=== PATIENT | female | born 1990 | race Caucasian/White ===

== ENCOUNTER 2018-04-20 14:39 | Emergency (ER) | payer MEDICAID ==
[~2018-04-20] VITALS: Ht 154.9 cm; Wt 69.8 kg
[2018-04-20 14:42] VITALS: BP 137/81
[2018-04-20] MEDS ORDERED: LIDOCAINE 2%, 20ML SQ ONE (16:00)
[2018-04-20] MEDS ORDERED: SULFAMETH./TRIMETHOPRIM DS 800MG/160MG TABLET ONE (16:02)
[2018-04-20] MEDS ORDERED: OXYcodone/APAP 5/325MG TABLET ONE (16:02)
[2018-04-20] MEDS ORDERED: CEPHALEXIN 500 MG CAPSULE ONE (16:03)
[2018-04-20] MEDS ORDERED: SULFAMETH./TRIMETHOPRIM DS 800MG/160MG TABLET PO ONE (16:30)
[2018-04-20] MEDS ORDERED: CEPHALEXIN 500 MG CAPSULE PO ONE (16:30)
[2018-04-20] MEDS ORDERED: OXYcodone/APAP 5/325MG TABLET PO ONE (16:30)
== END 2018-04-20 16:51 | disposition home or self-care (01) ==
LOC: ED 16:25
DX: L02.412 Cutaneous abscess of left axilla (principal); L03.112 Cellulitis of left axilla; H01.009 Unspecified blepharitis unspecified eye, unspecified eyelid
CPT/HCPCS: 10060; 99284

== ENCOUNTER 2018-04-23 09:39 | Emergency (ER) | payer MEDICAID ==
[~2018-04-23] VITALS: Ht 154.9 cm; Wt 69.1 kg
[2018-04-23 09:49] VITALS: BP 118/83
== END 2018-04-23 10:21 | disposition home or self-care (01) ==
LOC: ED 10:00
DX: Z48.01 Encounter for change or removal of surgical wound dressing (principal)
CPT/HCPCS: 99283

== ENCOUNTER 2020-02-16 08:13 | Inpatient (IN) | payer MEDICAID, OTHER ==
[~2020-02-16] VITALS: Ht 154.9 cm; Wt 66.6 kg
--- NOTE | 2020-02-16 08:38 | NUR ---
FIRST CONTACT WITH PT. PT C/O ALL QUADRANTS ABD PAIN SINCE YESTERDAY, CRAMPING AND STABBING PAIN. PT REPORTS INTERMITTENT N/V. DENIES CP, SOB, FEVER, RECENT TRAUMA. HX- ONE YEAR AGO HAD COLON RESECTION. PT'S AOX4. RESPS EVEN AND UNLABORED. DENIES URINARY SX. BP/SPO2 MONITORS IN PLACE. CALL LIGHT WITHIN REACH. RAILS UP X 2.
--- NOTE | 2020-02-16 08:41 | NUR ---
URINE CUP GIVEN.
[2020-02-16] MEDS ORDERED: MAALOX/HYOSCYAMINE/LIDOCAINE 45 ML BTL ONE (08:43)
[2020-02-16] MEDS ORDERED: MORPHINE SULFATE 4 MG/ML, 1ML ONE ×2 (08:43→10:16)
--- NOTE | 2020-02-16 08:55 | NUR ---
PT WHEELED TO BR AND BACK TO ROOM. URINE SAMPLE COLLECTED AND SENT.
[2020-02-16] MEDS ORDERED: MAALOX/HYOSCYAMINE/LIDOCAINE 45 ML BTL PO ONE (09:00)
[2020-02-16] MEDS ORDERED: MORPHINE SULFATE 4 MG/ML, 1ML IVPush PRN ×2 (09:00→10:00)
--- NOTE | 2020-02-16 09:03 | NUR ---
PT MEDICATED PER EMAR. PT TOLERATED WELL.
[2020-02-16 09:32] LABS: CULTURE INDICATED? YES; MICROSCOPIC INDICATED
[2020-02-16 09:42] LABS: MEAN CORPUSCULAR HEMOGLOBIN 29.2 pg (27.0-34.8); MEAN CORPUSCULAR HGB CONC 33.5 g/dL (32.4-35.8); MEAN CORPUSCULAR VOLUME 87.3 fL (80-100); MEAN PLATELET VOLUME 7.8 fL (7.4-10.4); PLATELET COUNT 291 x10^3/uL (130-400); RED BLOOD COUNT 4.79 x10^6/uL (3.82-5.3)
--- NOTE | 2020-02-16 09:45 | NUR ---
PT IN XRAY AT THIS TIME.
[2020-02-16 09:53] LABS: ALANINE AMINOTRANSFERASE 17 U/L (12-78); ANION GAP 6 mmol/L (5-15); CALCIUM 8.7 mg/dL (8.5-10.1); CHLORIDE 105 mmol/L (98-107); CREATININE 0.77 mg/dL (0.55-1.02)
[2020-02-16 09:55] LABS: ALKALINE PHOSPHATASE 70 U/L (45-117); BILIRUBIN,TOTAL 1.8 mg/dL (0.2-1.0); TOTAL PROTEIN 7.4 g/dL (6.4-8.2)
--- NOTE | 2020-02-16 10:01 | NUR ---
pt back to room from xray at this time.
[2020-02-16 10:03] LABS: MD YES
--- NOTE | 2020-02-16 10:11 | NUR ---
Lyndsey RN: IV access established, CT called & notified. Pt in bed, call light in reach, NAD
[2020-02-16 10:12] LABS: BAND#(MANUAL) 2.62 x10^3/uL; BANDS%(MANUAL) 14 % (0-7); LYMPH#(MANUAL) 0.94 x10^3/uL (1-3.4); LYMPHS% (MANUAL) 5 % (22-44); MONOS#(MANUAL) 0.56 x10^3/uL (0.3-2.7); MONOS% (MANUAL) 3 % (2-9); SEG#(MANUAL) 14.59 x10^3/uL (1.8-6.8); SEGS% (MANUAL) 78 % (42-75)
[2020-02-16 10:18] LABS: <PLATELET ESTIMATE> ADEQUATE; <RBC MORPHOLOGY> NORMAL
[2020-02-16 10:19] LABS: <PLT MORPHOLOGY> NORMAL PLT MORPH
--- NOTE | 2020-02-16 10:19 | NUR ---
PT MEDICATED PER EMAR FOR PAIN. PT TOLERATED WELL.
--- NOTE | 2020-02-16 10:27 | NUR ---
CT DELAY; ONE ROOM DOWN-ONE ROOM BUSY DIFFICULT PATIENT
--- NOTE | 2020-02-16 10:52 | NUR ---
medication ordered from pharmacy at this time.
[2020-02-16] MEDS ORDERED: CEFTRIAXONE PMX 2GM/50ML 50 ML IV SCH (11:00)
--- NOTE | 2020-02-16 11:02 | NUR ---
pt in ct at this time.
[2020-02-16] MEDS ORDERED: OMNIPAQUE 350 MG/ML, 100ML BOTTLE ONE (11:08)
--- NOTE | 2020-02-16 11:13 | NUR ---
lab at bedside for bc
--- NOTE | 2020-02-16 11:26 | NUR ---
this rn called for report. primary rn is not available at this time. will call back.
--- NOTE | 2020-02-16 12:13 | NUR ---
REPORT GIVEN TO JOSEF JACOB. ALL QUESTIONS ANSWERED.
--- NOTE | 2020-02-16 12:32 | NUR ---
ABX INFUSING AT THIS TIME AFTER BC X 2. PT TOLERATED WELL.
--- NOTE | 2020-02-16 12:48 | NUR ---
Bedside report from Liza RN, pt resting in [facility], NAD, eyes closed, skin P/W/D, call light within reach, RESP WNL, WCTM. waiting for trasnport staff to floor.
[2020-02-16 12:57] LABS: INTERNATIONAL NORMALIZED RATIO 1.11 (0.93-1.1); PROTHROMBIN TIME 11.8 Seconds (9.6-11.5)
[2020-02-16] MEDS ORDERED: SODIUM CHLORIDE 0.9% 1,000ML IVBOLUS ONE (13:00)
[2020-02-16] MEDS ORDERED: ONDANSETRON ODT 4 MG PO PRN (13:00)
[2020-02-16] MEDS ORDERED: LABETALOL 5MG/ML, 20ML IVPush PRN (13:00)
[2020-02-16] MEDS ORDERED: hydrALAzine 20 MG/ML, 1ML IVPush PRN (13:00)
[2020-02-16] MEDS ORDERED: ACETAMINOPHEN 325 MG TABLET PO PRN (13:00)
[2020-02-16] MEDS: HEPARIN 5,000 UNITS/ML, 1ML SQ SCH ×2 (13:00→20:26)
[2020-02-16] MEDS ORDERED: morphine SULFATE 10 MG/ML, 1ML IVPush PRN (13:00)
[2020-02-16] MEDS ORDERED: PIPERACILLIN/TAZO/PMX 3.375GM 50 ML IV SCH (13:00)
[2020-02-16] MEDS: SODIUM CHLORIDE 0.9% 1,000 ML IV SCH ×4 (13:00→13:23)
[2020-02-16] MEDS ORDERED: ONDANSETRON 2MG/ML, 2ML IVPush PRN (13:00)
[2020-02-16] MEDS ORDERED: VANCOMYCIN PER PHARMACY MC PRN (13:00)
[2020-02-16] MEDS ORDERED: NICOTINE 7 MG/24 HR PATCH.TD24 ONE (13:14)
[2020-02-16] MEDS: PIPERACILLIN/TAZO/PMX 3.375GM 50 ML IV SCH ×2 (13:21→19:49)
[2020-02-16] MEDS: HYDROcodone/APAP 5/325 TABLET PO PRN (13:22)
[2020-02-16] MEDS ORDERED: NICOTINE 7 MG/24 HR PATCH.TD24 TD SCH (13:30)
[2020-02-16] MEDS ORDERED: POTASSIUM CHLORIDE 40 MEQ in SODIUM CHLORIDE 0.9% 500 ML IV ONE (13:30)
[2020-02-16] MEDS ORDERED: VANCOMYCIN 1,600 MG in SODIUM CHLORIDE 0.9% 250 ML IV ONE (14:00)
[2020-02-16 14:11] VITALS: BP 119/84
[2020-02-16 16:50] LABS: AMPHETAMINE SCREEN, URINE Positive (Negative); BARBITURATE SCREEN, URINE Negative (Negative); BENZODIAZEPINE SCREEN, URINE Negative (Negative); CANNABINOID SCREEN, URINE Negative (Negative); COCAINE SCREEN, URINE Positive (Negative); METHADONE SCREEN, URINE Negative (Negative); OPIATE SCREEN, URINE Positive (Negative)
[2020-02-16 16:51] LABS: HCG UR SG > 1.045 (1.003-1.030)
[2020-02-16] MEDS ORDERED: LIDOCAINE 1%-EPI 1:100K, 50ML INFIL ONE (17:30)
[2020-02-16 20:38] VITALS: BP 121/86
[2020-02-17] MEDS: HYDROcodone/APAP 5/325 TABLET PO PRN (00:56)
[2020-02-17] MEDS: PIPERACILLIN/TAZO/PMX 3.375GM 50 ML IV SCH ×2 (01:04→08:18)
[2020-02-17 01:29] VITALS: BP 103/70
[2020-02-17] MEDS ORDERED: VANCOMYCIN 1,200 MG in SODIUM CHLORIDE 0.9% 250 ML IV SCH (04:00)
[2020-02-17] MEDS: SODIUM CHLORIDE 0.9% 1,000 ML IV SCH (04:16)
[2020-02-17] MEDS: HEPARIN 5,000 UNITS/ML, 1ML SQ SCH (04:22)
[2020-02-17 05:11] LABS: BASOPHILS # (AUTO) 0.04 x10^3/uL (0-0.1); BASOPHILS % (AUTO) 0 % (0-1); EOSINOPHILS % (AUTO) 1 % (1-7); LYMPHOCYTES % (AUTO) 16 % (22-44); MD NO; MEAN CORPUSCULAR HEMOGLOBIN 29.2 pg (27.0-34.8); MEAN CORPUSCULAR HGB CONC 33.3 g/dL (32.4-35.8); MEAN CORPUSCULAR VOLUME 87.5 fL (80-100); MEAN PLATELET VOLUME 7.9 fL (7.4-10.4); MONOCYTES # (AUTO) 0.64 x10^3/uL (0.2-0.8); MONOCYTES % (AUTO) 6 % (2-9); NEUTROPHILS % (AUTO) 77 % (42-75); PLATELET COUNT 225 x10^3/uL (130-400); RED BLOOD COUNT 4.29 x10^6/uL (3.82-5.3); RED CELL DISTRIBUTION WIDTH 13.3 % (9.6-15.2)
[2020-02-17 05:13] LABS: ALBUMIN 2.3 g/dL (3.4-5.0); ANION GAP 7 mmol/L (5-15); CALCIUM 7.9 mg/dL (8.5-10.1); CHLORIDE 108 mmol/L (98-107)
[2020-02-17 05:16] LABS: ALANINE AMINOTRANSFERASE 10 U/L (12-78); ALKALINE PHOSPHATASE 65 U/L (45-117); BILIRUBIN,TOTAL 1.3 mg/dL (0.2-1.0); CREATININE 0.64 mg/dL (0.55-1.02); TOTAL PROTEIN 6.1 g/dL (6.4-8.2)
[2020-02-17 08:15] VITALS: BP 105/72
[2020-02-17] MEDS ORDERED: VANCOMYCIN 1,300 MG in SODIUM CHLORIDE 0.9% 250 ML IV SCH (10:30)
[2020-02-17] MEDS ORDERED: SODIUM CHLORIDE 0.9% 1,000 ML IV SCH (12:43)
== END 2020-02-17 10:45 | disposition left against medical advice (07) | DRG 854 ==
LOC: ED 10:00 → EDIP 10:47 → 3N 13:02
PROVIDERS: ADMIT Internal Medicine; ATTEND Internal Medicine
PROC: 0W9F0ZZ Drainage of Abdominal Wall, Open Approach (ICD-10-PCS; principal; 2020-02-16)
DX: A41.9 Sepsis, unspecified organism (principal); E87.1 Hypo-osmolality and hyponatremia; L02.211 Cutaneous abscess of abdominal wall; F15.20 Other stimulant dependence, uncomplicated; N39.0 Urinary tract infection, site not specified; E86.1 Hypovolemia; E87.6 Hypokalemia; F17.200 Nicotine dependence, unspecified, uncomplicated; Z87.19 Personal history of other diseases of the digestive system; Z90.49 Acquired absence of other specified parts of digestive tract; R73.9 Hyperglycemia, unspecified; Z53.29 Procedure and treatment not carried out because of patient's decision for other reasons
CPT/HCPCS: 36415; 74021; 84145; 99285; J3490; 74177; 80053; 80307; 81001; 81025; 83605; 83690; 85025; 85610; 85730; 87040; 87070; 87075; 87086; 87205; G0378; J0696; J1644; J2543; J3370; J3480; Q9967; J2270; J7030; J7040; J7050